=== PATIENT | female | born 1985 | race Asian ===

== ENCOUNTER 2016-04-27 13:24 | Emergency (ER) | payer OTHER ==
[2016-04-27 13:42] VITALS: BP 127/78; PULSE 68; TEMP 97.8; BMI 24.1
--- NOTE | 2016-04-27 16:49 | PDOC ---
History of Present Illness - General Chief Complaint: Pain Stated Complaint: LT SIDE NUMBNESS Time Seen by Provider: 04/27/16 14:36 History Source: Patient Exam Limitations: No Limitations - History of Present Illness Initial Comments: 04/27/16 17:05 REFERRED BY LOCAL MD FOR PAIN TO LEFT INDEX FINGER X 3 DAYS, RADIATING UP ARM, AND ALSO NUMBNESS TO LEFT 4TH/ 5TH FINGER Severity: mild Associated Symptoms: denies: chest pain, cough, fever/chills, headaches, loss of appetite, malaise, nausea/vomiting, rash, shortness of breath, weakness Past History - Past Medical History Allergies/Adverse Reactions: Allergies Allergy/AdvReac Type Severity Reaction Status Date / Time No Known Drug Allergies Allergy Verified 04/27/16 13:38 Home Medications: Ambulatory Orders Naproxen [Naprosyn -] 500 mg PO BID #14 tablet 01/20/16 Anemia: Yes (DIET CONTROLLED) Asthma: No Cancer: No Cardiac Disorders: No CVA: No COPD: No CHF: No Dementia: No Diabetes: No GI Disorders: No Disorders: No HTN: No Hypercholesterolemia: No Liver Disease: No Seizures: No Thyroid Disease: No Other medical history: MIGRAINES - Surgical History Abdominal Surgery: Yes (GASTRIC SLEEVE; HERNIA) Appendectomy: No Cardiac Surgery: No Cholecystectomy: Yes Lung Surgery: No Neurologic Surgery: No Orthopedic Surgery: No - Reproductive History (#): 4 Para: 2 - Immunization History Immunization Up to Date: Yes - Psycho/Social/Smoking Cessation Hx Anxiety: No Suicidal Ideation: No Smoking Status: No Smoking History: Never smoked Have you smoked in the past 12 months: No Number of Cigarettes Smoked Daily: 0 Information on smoking cessation initiated: No 'Breaking Loose' booklet given: 08/18/12 Hx Alcohol Use: No Drug/Substance Use Hx: No Substance Use Type: None Hx Substance Use Treatment: No Review of Systems - Review of Systems Constitutional: No: Chills, Fever, Malaise HEENTM: No: Symptoms Reported, Nose Congestion, Throat Pain Respiratory: No: Symptoms reported, Cough Cardiac (ROS): No: Symptoms Reported ABD/GI: No: Symptoms Reported : No: Symptoms Reported Musculoskeletal: Yes: Symptoms Reported, Other (LEFT INDEX AND PROX ARM PAIN) Neurological: Yes: Tingling. No: Headache, Numbness, Paresthesia, Ataxia *Physical Exam - Vital Signs Last Vital Signs Temp Pulse Resp BP Pulse Ox 97.8 F 68 18 127/78 100 04/27/16 13:39 04/27/16 13:39 04/27/16 13:39 04/27/16 13:39 04/27/16 13:39 - Physical Exam General Appearance: Yes: Appropriately Dressed. No: Apparent Distress HEENT: negative: TMs Normal, Pharynx Normal Neck: positive: Supple, Lymphadenopathy (R), Lymphadenopathy (L). negative: Tender, Trachea midline, Rigid, Decreased range of motion, Rigidity, Tender lateral, Tender midline Respiratory/Chest: positive: Lungs Clear. negative: Chest Tender Cardiovascular: positive: Regular Rhythm, Regular Rate. negative: Murmur Extremity: positive: Normal Range of Motion, Other (NO REDNESS, SWELLING TO EXTREMITIES). negative: Cyanosis, Delayed Capillary Refill, Pedal Edema, Swelling, Calf Tenderness, Erythema, Inflammation Neurologic: positive: electrical fitter II-XII NML intact, Fully Oriented, Alert, Normal Mood/ Affect, Normal Response, Motor Strength 5/5. negative: EOM Palsy, Facial Droop , Numbness, Sensory Deficit, Babinski Deep Tendon Reflexes: Bicep (L): 2+, Bicep (R): 2+, Tricep (L): 2+, Tricep (R): 2+ ED Treatment Course - RADIOLOGY Radiology Studies Ordered: Category Date Time Status DUPLEX VASCUL US-1 ARM [US] Stat Ultrasound 04/27/16 15:40 Ordered Medical Decision Making - Medical Decision Making 04/27/16 17:10 AFTER WAITING SEVERAL HOURS PT REFUSED TO WAIT FOR LUE US, DID NOT WANT EKG WHILE IN ED *DC/Admit/Observation/Transfer Diagnosis at time of Disposition: Arm pain - Discharge Dispostion Disposition: AGAINST MEDICAL ADVICE Condition at time of disposition: Unchanged/Unknown Admit: No - Referrals Referrals: Kristyn Jones MD [Primary Care Provider] - - Patient Instructions Additional Instructions: PLEASE RETURN IF SYMPTOMS WORSEN; SEE LOCAL MD TOMORROW FOR PROBLEMS - Post Discharge Activity Work/School Note: Back to Work
== END 2016-04-27 17:10 | disposition left against medical advice (07) ==
LOC: JERFT 13:24
DX: M79.602 Pain in left arm (principal)
CPT/HCPCS: 99281-25

== ENCOUNTER 2016-11-05 10:48 | Emergency (ER) | payer OTHER ==
[2016-11-05 11:04] VITALS: TEMP 98.2; BMI 22.6
--- NOTE | 2016-11-05 11:20 | PDOC ---
Attending Attestation - HPI HPI: 11/05/16 11:50 31 year old female (LMP: October 19) with a PMHx of anemia (multiple blood transfusions in the past), gastric sleeve (5 years ago) presents to the ED via EMS after a syncopal episode today. Patient reports she has not felt herself for the past couple days and reported lightheadedness, headache, and nausea. Patients friend is with her, who reports the patient became very pale at work and said she didnt feel well. The patient syncopized when the friend left to get the nurse. Patient is unsure if she hit her head. She reports LOC. She denies vomiting, diarrhea, abdominal pain. She denies chest pain, SOB. - Physicial Exam PE: 11/05/16 11:50 GENERAL: Awake, alert, and fully oriented, in no acute distress HEAD: No signs of trauma EYES: PERRLA, EOMI, sclera anicteric, conjunctiva clear ENT: Auricles normal inspection, hearing grossly normal, nares patent, oropharynx clear without exudates. Moist mucosa NECK: Normal ROM, supple, no lymphadenopathy, JVD, or masses LUNGS: Breath sounds equal, clear to auscultation bilaterally. No wheezes, and no crackles HEART: Regular rate and rhythm, normal S1 and S2, no murmurs, rubs or gallops ABDOMEN: Soft, nontender, normoactive bowel sounds. No guarding, no rebound. No masses EXTREMITIES: Normal range of motion, no edema. No clubbing or cyanosis. No cords , erythema, or tenderness NEUROLOGICAL: Cranial nerves II through XII grossly intact. Normal speech, normal gait SKIN: Warm, Dry, normal turgor, no rashes or lesions noted. <Hayley Kapadia - Last Filed: 11/05/16 11:51> - Resident Resident Name: Marcin Mckeon - ED Attending Attestation I have performed the following: I have examined & evaluated the patient, The case was reviewed & discussed with the resident, I agree w/resident's findings & plan, Exceptions are as noted - Medical Decision Making 11/05/16 11:53 31 F with h/o gastric sleeve c/b chronic anemia requiring multiple transfusions in the past presenting to ER with lightheadedness and syncope. Pt states symptoms consistent with previous episodes of severe anemia. Pt with normal EKG , making cardiac syncope unlikely. Pt also has non-focal neuro exam, no history of post-ictal period per friend who witnessed episode. - Labs, T&S - UA, UPT - Transfuse PRN 11/05/16 14:02 CBC,CMP WBC 5.7 K/mm3 (4.0-10.0) 11/05/16 12:10 RBC 4.21 M/mm3 (3.60-5.2) 11/05/16 12:10 Hgb 12.1 GM/dL (10.7-15.3) 11/05/16 12:10 Hct 35.7 % (32.4-45.2) 11/05/16 12:10 MCV 84.7 fl (80-96) 11/05/16 12:10 MCH 28.8 pg (25.7-33.7) 11/05/16 12:10 MCHC 34.0 g/dl (32.0-36.0) 11/05/16 12:10 RDW 13.2 % (11.6-15.6) 11/05/16 12:10 Plt Count 156 K/MM3 (134-434) 11/05/16 12:10 MPV 8.4 fl (7.5-11.1) 11/05/16 12:10 Neutrophils % 66.5 % (42.8-82.8) D 11/05/16 12:10 Lymphocytes % 26.8 % (8-40) D 11/05/16 12:10 Monocytes % 5.4 % (3.8-10.2) 11/05/16 12:10 Eosinophils % 0.7 % (0-4.5) 11/05/16 12:10 Basophils % 0.6 % (0-2.0) 11/05/16 12:10 Sodium 140 mmol/L (136-145) 11/05/16 12:10 Potassium 3.8 mmol/L (3.5-5.1) 11/05/16 12:10 Chloride 108 mmol/L (98-107) H 11/05/16 12:10 Carbon Dioxide 27 mmol/L (21-32) 11/05/16 12:10 Anion Gap 5 (8-16) L 11/05/16 12:10 BUN 10 mg/dL (7-18) D 11/05/16 12:10 Creatinine 0.6 mg/dL (0.55-1.02) 11/05/16 12:10 Creat Clearance w eGFR > 60 (>60) 11/05/16 12:10 Random Glucose 83 mg/dL (74-106) 11/05/16 12:10 Calcium 8.9 mg/dL (8.5-10.1) 11/05/16 12:10 Total Bilirubin 0.7 mg/dL (0.2-1.0) D 11/05/16 12:10 AST 10 U/L (15-37) L D 11/05/16 12:10 ALT 17 U/L (12-78) D 11/05/16 12:10 Alkaline Phosphatase 41 U/L (45-117) L 11/05/16 12:10 Total Protein 7.0 g/dl (6.4-8.2) 11/05/16 12:10 Albumin 3.9 g/dl (3.4-5.0) 11/05/16 12:10 Pt feeling significantly improved with food and fluids. Labs unremarkable <Luis Alberto Sandoval - Last Filed: 11/05/16 14:29>
[2016-11-05] MEDS ORDERED: SODIUM CHLORIDE 0.9% 1000 ML INFUS.BAG IV ONE (11:33)
--- NOTE | 2016-11-05 11:41 | PDOC ---
History of Present Illness - General History Source: Patient, Friend Exam Limitations: No Limitations - History of Present Illness Initial Comments: 11/05/16 11:36 The patient is a 31F with a PMH of migraines, anemia s/p gastric sleeve in 2012 which she receives transfusions q year, who presents after a syncopal episode. The patient states that she's had a headache for 4 days which is worsening. This morning she woke up at 6:30 am with a worse headache than she's had, she also felt lightheaded and dizzy (room spinning). She was sitting in class today and acutely felt lightheaded, then her friend went to get the nurse after noticing the patient was pale, and when the friend came back she noticed the patient on the floor. The patient had no aura and was not post-ictal (no disorientation). She did lose consciousness, felt short of breath when she woke up, but is unsure if she hit her head. She has not eaten anything all day and does not eat or drink well in general. Allergies: NKDA Social: Does not smoke, drink, or use drugs Surg: gastric sleeve 2012, tubal, 4 c/s <Marcin Mckeon - Last Filed: 11/05/16 14:27> <Luis Alberto Sandoval - Last Filed: 11/05/16 14:31> - General Chief Complaint: Syncope/Near Syncope Stated Complaint: SYNCOPE Time Seen by Provider: 11/05/16 10:57 Past History - Past Medical History Anemia: Yes (DIET CONTROLLED blood transfusion) Asthma: No Cancer: No Cardiac Disorders: No CVA: No COPD: No CHF: No Dementia: No Diabetes: No GI Disorders: No Disorders: No HTN: No Hypercholesterolemia: No Liver Disease: No Seizures: No Thyroid Disease: No Other medical history: viral meningitis - Surgical History Abdominal Surgery: Yes (GASTRIC SLEEVE; HERNIA) Appendectomy: No Cardiac Surgery: No Cholecystectomy: Yes Gastric Stapling: Yes (gastric sleeve) Lung Surgery: No Neurologic Surgery: No Orthopedic Surgery: No - Reproductive History (#): 4 Para: 2 - Immunization History Immunization Up to Date: Yes - Psycho/Social/Smoking Cessation Hx Anxiety: No Suicidal Ideation: No Smoking Status: No Smoking History: Never smoked Have you smoked in the past 12 months: No Number of Cigarettes Smoked Daily: 0 Information on smoking cessation initiated: No 'Breaking Loose' booklet given: 08/18/12 Hx Alcohol Use: No Drug/Substance Use Hx: No Substance Use Type: None Hx Substance Use Treatment: No <Marcin Mckeon - Last Filed: 11/05/16 14:27> <Luis Alberto Sandoval - Last Filed: 11/05/16 14:31> - Past Medical History Allergies/Adverse Reactions: Allergies Allergy/AdvReac Type Severity Reaction Status Date / Time No Known Drug Allergies Allergy Verified 11/05/16 12:29 Home Medications: Ambulatory Orders Ibuprofen [Motrin -] 600 mg PO PRN 11/05/16 Review of Systems - Review of Systems Able to Perform ROS?: Yes Is the patient limited Estonian proficient: No Constitutional: Yes: Chills (baseline), Weakness. No: Fever HEENTM: No: Blurred Vision, Recent change in vision, Double Vision Respiratory: No: Cough, Shortness of Breath Cardiac (ROS): Yes: Syncope. No: Chest Pain ABD/GI: No: Other (abd pain) : No: Burning, Dysuria, Discharge Neurological: Yes: Headache, Weakness. No: Numbness, Tingling, Tremors <Marcin Mckeon - Last Filed: 11/05/16 14:27> *Physical Exam - Vital Signs Last Vital Signs Temp Pulse Resp BP Pulse Ox 98.2 F 64 18 100/75 100 11/05/16 10:54 11/05/16 10:54 11/05/16 10:54 11/05/16 10:54 11/05/16 10:54 <Marcin Mckeon - Last Filed: 11/05/16 14:27> - Vital Signs Last Vital Signs Temp Pulse Resp BP Pulse Ox 98.2 F 64 18 100/75 100 11/05/16 10:54 11/05/16 10:54 11/05/16 10:54 11/05/16 10:54 11/05/16 10:54 <Luis Alberto Sandoval - Last Filed: 11/05/16 14:31> ED Treatment Course - LABORATORY CBC & Chemistry Diagram: 11/05/16 12:10 11/05/16 12:10 <Marcin Mckeon - Last Filed: 11/05/16 14:27> - LABORATORY CBC & Chemistry Diagram: 11/05/16 12:10 11/05/16 12:10 - ADDITIONAL ORDERS Additional order review: Laboratory Results 11/05/16 11/05/16 11/05/16 12:10 12:10 11:55 Sodium 140 Potassium 3.8 Chloride 108 H Carbon Dioxide 27 Anion Gap 5 L BUN 10 D Creatinine 0.6 Creat Clearance w eGFR > 60 Random Glucose 83 Calcium 8.9 Total Bilirubin 0.7 D AST 10 L D ALT 17 D Alkaline Phosphatase 41 L Total Protein 7.0 Albumin 3.9 Urine Color Straw Urine Appearance Clear Urine pH 7.0 D Urine Protein Negative Urine Glucose (UA) Negative Urine Ketones Negative Urine Blood Negative Urine Nitrite Negative Urine Bilirubin Negative Urine Urobilinogen Negative Ur Leukocyte Esterase 2+ H Urine RBC <1 Urine WBC 3 Ur Epithelial Cells Moderate Urine HCG, Qual Negative Blood Type O POSITIVE Antibody Screen Negative 11/05/16 12:10 RBC 4.21 MCV 84.7 MCHC 34.0 RDW 13.2 MPV 8.4 Neutrophils % 66.5 D Lymphocytes % 26.8 D Monocytes % 5.4 Eosinophils % 0.7 Basophils % 0.6 - Medications Given in the ED: ED Medications Discontinued Medications Generic Name Dose Route Start Last Admin Trade Name Stevieq PRN Reason Stop Dose Admin Acetaminophen 1,000 mg 11/05/16 12:10 11/05/16 12:20 Ofirmev Injection - IVPB 11/05/16 12:11 1,000 mg ONCE ONE Administration Metoclopramide HCl 10 mg 11/05/16 12:10 11/05/16 12:20 Reglan Injection - IVPB 11/05/16 12:11 10 mg ONCE ONE Administration Sodium Chloride 1,000 ml 11/05/16 11:33 11/05/16 12:20 Normal Saline - IV 11/05/16 11:34 1,000 ml ONCE ONE Administration <Ou,Luis Alberto - Last Filed: 11/05/16 14:31> *DC/Admit/Observation/Transfer - Discharge Dispostion Admit: No - Attestations Physician Attestion: 11/05/16 14:27 I, Dr. Marcin Mckeon, attest that this document has been prepared under my direction and personally reviewed by me in its entirety. I further attest, that it accurately reflects all work, treatment, procedures and medical decision -making performed by me. <Marcin Mckeon - Last Filed: 11/05/16 14:27> <Luis Alberto Sandoval - Last Filed: 11/05/16 14:31> Diagnosis at time of Disposition: Syncope Qualifiers: Syncope type: unspecified Qualified Code(s): R55 - Syncope and collapse - Discharge Dispostion Disposition: HOME Condition at time of disposition: Improved - Referrals Referrals: Heladio Gould MD [Primary Care Provider] - - Patient Instructions Additional Instructions: Follow up with your primary care doctor within 1 week for further work up of your fainting episode. You may need a "Holter monitor" to check for any abnormal heart rhythms. Please return to the ER if symptoms persist, worsen, or if new symptoms arise. Print Language: FRENCH
[2016-11-05] MEDS ORDERED: METOCLOPRAMIDE HCL INJECTION 10 MG/2 ML VIAL IVPB ONE (12:10)
[2016-11-05] MEDS ORDERED: ACETAMINOPHEN 1000 MG/100 ML VIAL (NON FORMULARY) IVPB ONE (12:10)
[2016-11-05] MEDS ORDERED: ACETAMINOPHEN INJECTION 100 ML IVPB ONE (12:11)
[2016-11-05] MEDS ORDERED: METOCLOPRAMIDE HCL INJECTION 10 MG/2 ML VIAL ONE (12:12)
[2016-11-05 12:26] LABS: BASOPHIL 0.6 % (0-2.0); EOSINOPHIL 0.7 % (0-4.5); MCH 28.8 pg (25.7-33.7); MEAN CELL VOLUME 84.7 fl (80-96); MEAN PLT VOLUME 8.4 fl (7.5-11.1); NEUTROPHILS 66.5 % (42.8-82.8); PLATELET COUNT 156 K/MM3 (134-434); RDW 13.2 % (11.6-15.6); WHITE BLOOD COUNT 5.7 K/mm3 (4.0-10.0)
[2016-11-05 12:29] LABS: URINE APPEARANCE CLEAR; URINE BILIRUBIN NEGATIVE (NEGATIVE); URINE BLOOD NEGATIVE (NEGATIVE); URINE COLOR STRAW; URINE GLUCOSE (UA) NEGATIVE (NEGATIVE); URINE KETONE NEGATIVE (NEGATIVE); URINE NITRITE NEGATIVE (NEGATIVE); URINE PROTEIN NEGATIVE (NEGATIVE); URINE UROBILINOGEN NEGATIVE mg/dL (0.2-1.0)
[2016-11-05 12:31] LABS: URINE LEUK ESTERASE 2+ (NEGATIVE)
[2016-11-05 12:34] LABS: URINE RBC <1 /hpf (0-3); URINE WBC 3 /hpf (3-5)
[2016-11-05 12:51] LABS: ALBUMIN 3.9 g/dl (3.4-5.0); ANION GAP 5 (8-16); BILIRUBIN,TOTAL 0.7 mg/dL (0.2-1.0); CALCIUM 8.9 mg/dL (8.5-10.1); CO2 27 mmol/L (21-32); CREATININE 0.6 mg/dL (0.55-1.02); GLUCOSE,RANDOM 83 mg/dL (74-106); SGOT/AST 10 U/L (15-37); SGPT/ALT 17 U/L (12-78)
[2016-11-05 12:52] LABS: ALK PHOS 41 U/L (45-117)
[2016-11-05 14:54] VITALS: BP 102/58; PULSE 55
--- NOTE | 2016-11-05 15:03 | EKG ---
Test Reason : Blood Pressure : / mmHG Vent. Rate : 063 BPM Atrial Rate : 063 BPM P-R Int : 132 ms QRS Dur : 068 ms QT Int : 392 ms P-R-T Axes : 049 072 038 degrees QTc Int : 401 ms POOR DATA QUALITY, INTERPRETATION MAY BE ADVERSELY AFFECTED NORMAL SINUS RHYTHM NORMAL ECG WHEN COMPARED WITH ECG OF 27-NOV-2015 17:40, NO SIGNIFICANT CHANGE WAS FOUND Confirmed by NERI CORTES, CAMILA ([id number]) on 11/05/2016 3:03:33 PM Referred By: Confirmed By:CAMILA HE MD
== END 2016-11-05 14:53 | disposition home or self-care (01) ==
LOC: JER 10:48
PROC: 3E033NZ Introduction of Analgesics, Hypnotics, Sedatives into Peripheral Vein, Percutaneous Approach (ICD-10-PCS; principal; 2016-11-05)
PROC: 3E033GC Introduction of Other Therapeutic Substance into Peripheral Vein, Percutaneous Approach (ICD-10-PCS; 2016-11-05)
PROC: 3E0337Z Introduction of Electrolytic and Water Balance Substance into Peripheral Vein, Percutaneous Approach (ICD-10-PCS; 2016-11-05)
DX: R55 Syncope and collapse (principal); D64.9 Anemia, unspecified; Z98.84 Bariatric surgery status
CPT/HCPCS: 36415; 80053; 81003; 81015; 84703; 85025; 86850; 86900; 86901; 93005; 93010; 99282-25

== ENCOUNTER 2022-01-03 22:10 | Emergency (ER) | payer OTHER ==
[2022-01-03 22:25] VITALS: BP 110/69; PULSE 98; RESP 19; TEMP 99.3; BMI 27.4
[2022-01-03] MEDS ORDERED: IBUPROFEN 600 MG TABLET (FP) PO ONE (23:09)
[2022-01-03] MEDS ORDERED: DEXAMETHASONE SOD PHOSPHATE 10 MG/1 ML VIAL PO ONE (23:09)
== END 2022-01-03 23:20 | disposition home or self-care (01) ==
LOC: JER 22:10
DX: B34.9 Viral infection, unspecified (principal)
CPT/HCPCS: 0241U-QW; 99283-25; J1100